=== PATIENT | female | born 1945 | race Two or more races ===

== ENCOUNTER 2017-10-23 08:52 | Outpatient (CLI) | payer OTHER | END 2017-10-23 08:55 | disposition home or self-care (01) | LOC: SONOGRAMA 08:52 → MAMO-SONO 09:15 | DX: C73 Malignant neoplasm of thyroid gland (principal); E89.0 Postprocedural hypothyroidism ==

== ENCOUNTER 2018-02-23 08:11 | Outpatient (CLI) | payer OTHER | END 2018-02-23 08:21 | disposition home or self-care (01) | LOC: MAMO-SONO 08:11 | DX: Z12.31 Encounter for screening mammogram for malignant neoplasm of breast (principal); Z87.898 Personal history of other specified conditions; N60.11 Diffuse cystic mastopathy of right breast; N60.12 Diffuse cystic mastopathy of left breast ==

== ENCOUNTER → 2018-02-23 | Outpatient (CLI) | payer OTHER | END | disposition home or self-care (01) | LOC: NUCLEAR 09:41 | DX: M85.80 Other specified disorders of bone density and structure, unspecified site (principal); M81.0 Age-related osteoporosis without current pathological fracture ==

== ENCOUNTER 2018-11-04 11:23 | Outpatient (CLI) | payer OTHER | END 2018-11-04 11:31 | disposition home or self-care (01) | LOC: LAB 11:23 | DX: D12.0 Benign neoplasm of cecum (principal); Z51.81 Encounter for therapeutic drug level monitoring ==

== ENCOUNTER 2018-11-09 09:34 | Inpatient (IN) | payer OTHER ==
[~2018-11-09] VITALS: Ht 160 cm; Wt 81.6 kg
[2018-11-09] MEDS ORDERED: SYNTHROID125 MCG PO (10:36)
[2018-11-09] MEDS ORDERED: SIMVASTATIN20 MG PO (10:36)
[2018-11-13] MEDS ORDERED: LEVSIN/SL0.125 MG SL (14:22)
== END 2018-11-13 14:50 | disposition home or self-care (01) | DRG 390 ==
LOC: ER 09:34 → SEC-K 21:15 → MEDI 11-10 15:44 → SURH 11-11 16:01
PROVIDERS: ADMIT Colon & Rectal Surgery
PROC: BW21Y0Z Computerized Tomography (CT Scan) of Abdomen and Pelvis using Other Contrast, Unenhanced and Enhanced (ICD-10-PCS; principal; 2018-11-09)
DX: K56.690 Other partial intestinal obstruction (principal); K76.0 Fatty (change of) liver, not elsewhere classified; K57.30 Diverticulosis of large intestine without perforation or abscess without bleeding; K52.89 Other specified noninfective gastroenteritis and colitis; E03.8 Other specified hypothyroidism; N20.0 Calculus of kidney; K42.9 Umbilical hernia without obstruction or gangrene; R10.31 Right lower quadrant pain

== ENCOUNTER 2018-11-17 08:44 | Outpatient (CLI) | payer OTHER ==
[~2018-11-17 08:44] MED LIST: LEVSIN/SL0.125 MG SL; SIMVASTATIN20 MG PO; SYNTHROID125 MCG PO
== END 2018-11-17 09:01 | disposition home or self-care (01) ==
LOC: TOM 08:44
DX: D12.0 Benign neoplasm of cecum (principal); C18.0 Malignant neoplasm of cecum
CPT/HCPCS: 74178; Q9965

== ENCOUNTER 2018-12-07 07:25 | Outpatient (CLI) | payer OTHER | END 2018-12-07 08:00 | disposition home or self-care (01) | LOC: LAB 07:25 | DX: D12.0 Benign neoplasm of cecum (principal); C18.0 Malignant neoplasm of cecum; Z86.010 Personal history of colon polyps; Z85.038 Personal history of other malignant neoplasm of large intestine ==

== ENCOUNTER 2018-12-07 08:19 | Outpatient (CLI) | payer OTHER | END 2018-12-07 08:24 | disposition home or self-care (01) | LOC: RAD 08:19 | DX: D12.0 Benign neoplasm of cecum (principal); C18.0 Malignant neoplasm of cecum; Z86.010 Personal history of colon polyps; Z85.038 Personal history of other malignant neoplasm of large intestine ==

== ENCOUNTER 2018-12-09 07:30 | Inpatient (IN) | payer OTHER ==
[~2018-12-09] VITALS: Ht 157.5 cm; Wt 72.6 kg
[2018-12-09] MEDS ORDERED: FENOFIBRATE145 MG PO (14:05)
[2018-12-16] MEDS ORDERED: OXYC1TAB9 PO (17:48)
== END 2018-12-16 17:46 | disposition home or self-care (01) | DRG 357 ==
LOC: O/R 12-14 05:40 → SURH 12-14 05:40 → O/R 12-14 07:30 → SURH 12-14 13:11 → O/R 12-14 13:30 → SURH 12-16 17:46
PROVIDERS: ADMIT Colon & Rectal Surgery
PROC: 0WBF4ZZ Excision of Abdominal Wall, Percutaneous Endoscopic Approach (ICD-10-PCS; principal; 2018-12-14 13:30)
DX: K56.690 Other partial intestinal obstruction (principal); C18.0 Malignant neoplasm of cecum; C79.89 Secondary malignant neoplasm of other specified sites; C78.5 Secondary malignant neoplasm of large intestine and rectum; E03.8 Other specified hypothyroidism; E78.00 Pure hypercholesterolemia, unspecified

== ENCOUNTER → 2019-01-07 | Outpatient (CLI) | payer OTHER ==
[~2019-01-07] MED LIST changes: +FENOFIBRATE145 MG PO; +OXYC1TAB9 PO
== END | disposition home or self-care (01) ==
LOC: NUCLEAR 07:00
DX: C73 Malignant neoplasm of thyroid gland (principal); C34.11 Malignant neoplasm of upper lobe, right bronchus or lung; C18.2 Malignant neoplasm of ascending colon; C78.6 Secondary malignant neoplasm of retroperitoneum and peritoneum
CPT/HCPCS: 78816; A9552

== ENCOUNTER 2019-01-10 08:01 | Outpatient (CLI) | payer OTHER | END 2019-01-10 13:18 | disposition home or self-care (01) | LOC: LAB 08:01 | DX: E03.8 Other specified hypothyroidism (principal); C73 Malignant neoplasm of thyroid gland; C34.11 Malignant neoplasm of upper lobe, right bronchus or lung; C18.2 Malignant neoplasm of ascending colon; C78.6 Secondary malignant neoplasm of retroperitoneum and peritoneum; D50.0 Iron deficiency anemia secondary to blood loss (chronic); D51.8 Other vitamin B12 deficiency anemias; I10 Essential (primary) hypertension; R97.0 Elevated carcinoembryonic antigen [CEA] ==

== ENCOUNTER 2019-02-16 07:21 | Outpatient (CLI) | payer OTHER | END 2019-02-16 15:13 | disposition home or self-care (01) | LOC: LAB 07:21 | DX: D12.0 Benign neoplasm of cecum (principal); C18.0 Malignant neoplasm of cecum; Z86.010 Personal history of colon polyps; Z85.038 Personal history of other malignant neoplasm of large intestine ==

== ENCOUNTER → 2019-02-16 | Outpatient (CLI) | payer OTHER | END | disposition home or self-care (01) | LOC: RAD 08:25 | DX: D12.0 Benign neoplasm of cecum (principal); C18.0 Malignant neoplasm of cecum; Z86.010 Personal history of colon polyps; Z85.038 Personal history of other malignant neoplasm of large intestine ==

== ENCOUNTER 2019-02-23 06:05 | Day surgery (SDC) | payer OTHER | END 2019-02-23 13:45 | disposition home or self-care (01) | LOC: CIR.AMB 06:05 | DX: C18.0 Malignant neoplasm of cecum (principal) | CPT/HCPCS: 36561; C1751 ==

== ENCOUNTER 2019-03-01 07:05 | Outpatient (CLI) | payer OTHER | END 2019-03-01 07:09 | disposition home or self-care (01) | LOC: LAB 07:05 | DX: C18.2 Malignant neoplasm of ascending colon (principal); C78.6 Secondary malignant neoplasm of retroperitoneum and peritoneum; C73 Malignant neoplasm of thyroid gland; C34.11 Malignant neoplasm of upper lobe, right bronchus or lung; I10 Essential (primary) hypertension ==

== ENCOUNTER 2019-04-12 06:58 | Outpatient (CLI) | payer OTHER | END 2019-04-12 07:03 | disposition home or self-care (01) | LOC: LAB 06:58 | DX: C18.2 Malignant neoplasm of ascending colon (principal); C73 Malignant neoplasm of thyroid gland ==

== ENCOUNTER 2019-04-12 07:49 | Outpatient (CLI) | payer OTHER | END 2019-04-12 08:06 | disposition home or self-care (01) | LOC: MAMO-SONO 07:49 | DX: Z12.31 Encounter for screening mammogram for malignant neoplasm of breast (principal); Z87.898 Personal history of other specified conditions; N60.11 Diffuse cystic mastopathy of right breast; N60.12 Diffuse cystic mastopathy of left breast ==

== ENCOUNTER 2019-05-03 08:41 | Outpatient (CLI) | payer OTHER | END 2019-05-03 08:51 | disposition home or self-care (01) | LOC: SONOGRAMA 08:41 → MAMO-SONO 09:15 | DX: C73 Malignant neoplasm of thyroid gland (principal); E89.0 Postprocedural hypothyroidism ==

== ENCOUNTER 2019-05-03 09:44 | Outpatient (CLI) | payer OTHER | END 2019-05-03 09:48 | disposition home or self-care (01) | LOC: LAB 09:44 | DX: N20.0 Calculus of kidney (principal) ==

== ENCOUNTER 2020-02-27 07:24 | Outpatient (CLI) | payer OTHER | END 2020-02-27 07:32 | disposition home or self-care (01) | LOC: TOM 07:24 | PROVIDERS: ATTEND Internal Medicine Hematology & Oncology | DX: C18.2 Malignant neoplasm of ascending colon (principal); C78.6 Secondary malignant neoplasm of retroperitoneum and peritoneum; C73 Malignant neoplasm of thyroid gland; C34.11 Malignant neoplasm of upper lobe, right bronchus or lung; Z20.828 Contact with and (suspected) exposure to other viral communicable diseases | CPT/HCPCS: 71260; 74177; Q9965 ==

== ENCOUNTER → 2020-02-27 08:09 | Outpatient (CLI) | payer OTHER | END | disposition home or self-care (01) | LOC: LAB 08:09 | PROVIDERS: ATTEND Radiology Diagnostic Radiology | DX: N20.0 Calculus of kidney (principal) ==

== ENCOUNTER 2020-03-09 10:01 | Outpatient (CLI) | payer OTHER | END 2020-03-09 10:09 | disposition home or self-care (01) | LOC: SONOGRAMA 10:01 → MAMO-SONO 10:15 | PROVIDERS: ATTEND Internal Medicine Hematology & Oncology | DX: C18.2 Malignant neoplasm of ascending colon (principal); C78.6 Secondary malignant neoplasm of retroperitoneum and peritoneum; C73 Malignant neoplasm of thyroid gland; C34.11 Malignant neoplasm of upper lobe, right bronchus or lung; Z20.828 Contact with and (suspected) exposure to other viral communicable diseases ==

== ENCOUNTER 2020-07-02 15:04 | Emergency (ER) | payer OTHER ==
[~2020-07-02] VITALS: Ht 152.4 cm; Wt 44.5 kg
[2020-07-02] MEDS ORDERED: SYNTHROID137 MCG (15:21)
== END 2020-07-02 23:17 | disposition home or self-care (01) ==
LOC: ER 15:04
DX: K29.60 Other gastritis without bleeding (principal); E86.0 Dehydration; E87.8 Other disorders of electrolyte and fluid balance, not elsewhere classified; R10.84 Generalized abdominal pain; C78.5 Secondary malignant neoplasm of large intestine and rectum; Z51.11 Encounter for antineoplastic chemotherapy

== ENCOUNTER 2020-07-09 16:26 | Inpatient (IN) | payer OTHER ==
[~2020-07-09] VITALS: Ht 152.4 cm; Wt 44.9 kg
[~2020-07-09 16:26] MED LIST changes: +SYNTHROID137 MCG
[2020-07-09] MEDS ORDERED: SYNTHROID150 MCG (17:21)
[2020-07-12] MEDS ORDERED: SYNTHROID150 MCG PO (10:37)
== END 2020-07-12 11:51 | disposition other institution (70) | DRG 375 ==
LOC: ER 16:26 → SEC-K 21:10 → MEDI 21:10
PROVIDERS: ADMIT Internal Medicine Geriatric Medicine; ATTEND Internal Medicine Geriatric Medicine
PROC: 3E0436Z Introduction of Nutritional Substance into Central Vein, Percutaneous Approach (ICD-10-PCS; principal; 2020-07-09)
PROC: BW21ZZZ Computerized Tomography (CT Scan) of Abdomen and Pelvis (ICD-10-PCS; 2020-07-09)
PROC: CB2YYZZ Tomographic (Tomo) Nuclear Medicine Imaging of Respiratory System using Other Radionuclide (ICD-10-PCS; 2020-07-10)
PROC: 02HV33Z Insertion of Infusion Device into Superior Vena Cava, Percutaneous Approach (ICD-10-PCS; 2020-07-11)
DX: C78.6 Secondary malignant neoplasm of retroperitoneum and peritoneum (principal); K56.690 Other partial intestinal obstruction; C18.9 Malignant neoplasm of colon, unspecified; R18.8 Other ascites; E46 Unspecified protein-calorie malnutrition; K56.41 Fecal impaction; E86.0 Dehydration; E89.0 Postprocedural hypothyroidism; F43.21 Adjustment disorder with depressed mood; E78.00 Pure hypercholesterolemia, unspecified; E88.09 Other disorders of plasma-protein metabolism, not elsewhere classified; Z09 Encounter for follow-up examination after completed treatment for conditions other than malignant neoplasm; Z86.19 Personal history of other infectious and parasitic diseases